=== PATIENT | male | born 1995 | race Caucasian/White ===

== ENCOUNTER 2017-11-12 21:29 | Emergency (ER) | payer MEDICAID ==
[2017-11-12] MEDS ORDERED: Ketorolac 60 MG/2 ML SDV IM ONE (21:54)
--- NOTE | 2017-11-12 21:57 | EDM.PDOC ---
ED HPI GENERAL MEDICAL PROBLEM - General Chief Complaint: Lower Extremity Injury/Pain Stated Complaint: RIGHT FOOT PAIN/INJURY Time Seen by Provider: 11/12/17 21:55 Source of Information: Reports: Patient, Family, RN Notes Reviewed History Limitations: Reports: No Limitations - History of Present Illness INITIAL COMMENTS - FREE TEXT/NARRATIVE: 22-year-old gentleman presents to the emergency department today complaint of right foot pain, he recently injured himself when he stepped off the curb earlier today as he is having difficulty moving his ankle but is experiencing pain on the lateral aspect of his foot he cannot bear weight and used crutches to present to the emergency department 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: Reports: Other (see below) Other 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: crutches Right Foot Pain Score (Numeric/FACES): 8 - Related Data Allergies Allergy/AdvReac Type Severity Reaction Status Date / Time No Known Allergies Allergy Verified 11/12/17 21:53 Home Meds: Home Meds NK [No Known Home Meds] 11/12/17 [History] Past Medical History - Past Health History Medical/Surgical History: Denies Medical/Surgical History Social & Family History - Tobacco Use Smoking Status *Q: Current Some Day Smoker Review of Systems - Review of Systems Review Of Systems: See Below Constitutional: Reports: No Symptoms Musculoskeletal: Reports: Foot Pain Skin: Reports: No Symptoms Neurological: Reports: No Symptoms ED EXAM, GENERAL - Physical Exam Exam: See Below Free Text/Narrative:: Examination of the right foot I do not appreciate any erythema or edema he has limited range of motion of the digits he is tender to palpation over the lateral aspect of the foot I cannot elicit pain with an anterior drawer or tilt test of the ankle mortise, pedal pulse is +2 sensation is intact Exam Limited By: No Limitations General Appearance: Alert, WD/WN, No Apparent Distress Respiratory/Chest: No Respiratory Distress Course - Vital Signs Last Recorded V/S: Last Vital Signs Temp 97.9 F 11/12/17 21:47 Pulse 93 11/12/17 21:47 Resp 14 11/12/17 21:47 BP 128/45 L 11/12/17 21:47 Pulse Ox 99 11/12/17 21:47 - Orders/Labs/Meds Orders: Active Orders 24 hr Category Date Time Status Ankle Min 3V Rt [CR] Stat Exams 11/12/17 21:54 Taken Foot 2V Rt [CR] Stat Exams 11/12/17 21:54 Taken DME for Discharge [COMM] Per Unit Routine Oth 11/12/17 22:41 Ordered Meds: Medications Discontinued Medications Generic Name Dose Route Start Last Admin Trade Name Rubin PRN Reason Stop Dose Admin Ketorolac Tromethamine 60 mg 11/12/17 21:54 11/12/17 22:01 Toradol IM 11/12/17 21:55 60 mg ONETIME ONE Administration Departure - Departure Time of Disposition: 22:43 Disposition: Home, Self-Care 01 Condition: Good Clinical Impression: Ankle sprain Qualifiers: Encounter type: initial encounter Involved ligament of ankle: unspecified ligament Laterality: right Qualified Code(s): S93.401A - Sprain of unspecified ligament of right ankle, initial encounter - Discharge Information Referrals: PCP,None [Primary Care Provider] - Forms: ED Department Discharge, ED Return to Work/School Form Additional Instructions: Use ibuprofen for baseline pain control, use hydrocodone for breakthrough pain, continue to use the boot and crutches as needed for comfort, Please followup with your primary care provider in 3-5 days if not better, please call return to the emergency department with worsening of symptoms. - My Orders Last 24 Hours: My Active Orders 11/12/17 21:54 Ankle Min 3V Rt [CR] Stat Foot 2V Rt [CR] Stat 11/12/17 22:41 DME for Discharge [COMM] Per Unit Routine - Assessment/Plan Last 24 Hours: My Active Orders 11/12/17 21:54 Ankle Min 3V Rt [CR] Stat Foot 2V Rt [CR] Stat 11/12/17 22:41 DME for Discharge [COMM] Per Unit Routine Plan: Assessment Acuity = acute Site and laterality = right foot contusion Etiology = secondary to twisting injury Manifestations = none Location of injury = Home Lab values = foot x-ray and ankle x-ray I did review films myself I cannot appreciate any acute process, the official read from radiology is pending Plan I did review x-ray results with him he had good relief from the Toradol injection he has crutches plan is to discharge home with a Cam Walker boot's #6 hydrocodone 5/325 one tab by mouth 3 times a day when necessary written for pain he will follow-up with his primary care in 3-5 days if no improvement This note was dictated using EXPO voice recognition software please call with any questions on syntax or laura.
--- NOTE | 2017-11-14 09:16 | CR ---
Ankle Min 3V Rt HISTORY: pain twist FINDINGS: No acute fracture or dislocation is identified. Bony architecture and joint spaces are preserved. S oft tissues are unremarkable. IMPRESSION: No acute right ankle abnormality identified.
--- NOTE | 2017-11-14 09:18 | CR ---
Foot 2V Rt HISTORY: pain twist FINDINGS: No acute fracture or dislocation is identified. Bony architecture and joint spaces are preserved. S oft tissues are unremarkable. IMPRESSION: No acute right foot abnormality identified.
== END 2017-11-12 23:00 | disposition home or self-care (01) ==
LOC: JP.ED 21:29
DX: S93.401A Sprain of unspecified ligament of right ankle, initial encounter (principal); F17.210 Nicotine dependence, cigarettes, uncomplicated
CPT/HCPCS: 73610; 73620; 96372; 99284; J1885; 99283